=== PATIENT | female | born 1970 | race African-American/Black ===

== ENCOUNTER 2016-09-25 03:06 | Emergency (ER) | payer BC ==
[~2016-09-25] VITALS: Ht 160 cm; Wt 95.3 kg
[~2016-09-25 03:06] MED LIST: AMLO5TAB2 PO; HYDR-2762 PO; RANI150C PO; [UNRECOGNIZED DRUG - OTHER]
[2016-09-25 03:12] VITALS: BP 171/97
[2016-09-25] MEDS ORDERED: ASPIRIN 325 MG TABLET PO ONE (04:00)
[2016-09-25] MEDS ORDERED: LIDO:MAALOX:DONNATAL 1:1:1 15 ML SINGLE DOSE SWSW ONE (04:15)
[2016-09-25] MEDS ORDERED: FAMO20TA5 PO (04:16)
--- NOTE | 2016-09-25 04:16 | PHYS DOC ---
Past Medical History Past Medical History: GERD, Hypertension, Hyperthyroid Additional Past Medical Histor: seasonal allergies Past Surgical History: , Other Additional Past Surgical Histo: legs Alcohol Use: Rarely Drug Use: None Adult General Chief Complaint Chief Complaint: CHEST PAIN HPI HPI Patient is a 46 year old female who presents with left chest pain that is sharp and burning for the past few hours, constant, similar to prior evaluation when she had negative stress test last year. Started at rest, nonexertional. Pain is nonradiating. She has taken Tums without resolution of her symptoms. She denies palpitations, diaphoresis, lightheadedness, dyspnea, cough, leg pain or swelling, hemoptysis, orthopnea, fever or chills, nausea or vomiting, abdominal pain, back pain. Review of Systems Review of Systems Constitutional: Denies fever or chills [] Eyes: Denies change in visual acuity, redness, or eye pain [] HENT: Denies nasal congestion or sore throat [] Respiratory: Denies cough or shortness of breath [] Cardiovascular: No additional information not addressed in HPI [] GI: Denies abdominal pain, nausea, vomiting, bloody stools or diarrhea [] : Denies dysuria or hematuria [] Musculoskeletal: Denies back pain or joint pain [] Integument: Denies rash or skin lesions [] Neurologic: Denies headache, focal weakness or sensory changes [] Endocrine: Denies polyuria or polydipsia [] Current Medications Current Medications Current Medications Medications (Trade) Dose Ordered Sig/[facility] Start Time Stop Time Status Last Admin Dose Admin Aspirin (Trev Aspirin) 325 mg 1X ONCE 09/25/16 04:00 09/25/16 04:01 DC 09/25/16 04:00 325 MG Multi-Ingredient Mouthwash/Gargle (Gi Cocktail Single Dose) 15 ml 1X ONCE 09/25/16 04:15 09/25/16 04:21 DC 09/25/16 04:15 15 ML Allergies Allergies Allergies Coded Allergies Type Severity Reaction Last Updated Verified No Known Drug Allergies 11/07/14 No Physical Exam Physical Exam Constitutional: Well developed, well nourished, no acute distress, non-toxic appearance. [] HENT: Normocephalic, atraumatic, bilateral external ears normal, oropharynx moist, no oral exudates, nose normal. [] Eyes: PERRLA, EOMI. [] Neck: Normal range of motion, supple. [] Cardiovascular:Heart rate regular rhythm [] Lungs & Thorax: Bilateral breath sounds clear to auscultation. No palpable chest wall tenderness [] Abdomen: Bowel sounds normal, soft, no tenderness. [] Skin: Warm, dry, no erythema, no rash. [] Back: Normal range of motion. [] Extremities: No tenderness, ROM intact, no edema. [] Neurologic: Alert and oriented X 3, normal motor function, normal sensory function, no focal deficits noted. [] Psychologic: Affect normal, judgement normal, mood normal. [] Current Patient Data Vital Signs Vital Signs Date Time Temp Pulse Resp B/P (MAP) Pulse Ox O2 Delivery O2 Flow Rate FiO2 09/25/16 03:12 98.3 85 20 171/97 (121) 100 Room Air 98.3 Lab Values Laboratory Tests Test 09/25/16 02:37 09/25/16 03:57 POC Urine HCG, Qualitative Hcg negative (Negative) POC Troponin I 0.00 ng/ml (<0.08) EKG EKG EKG as interpreted by me as normal sinus rhythm, rate 92, no ST-T changes, normal intervals, no ectopy Radiology/Procedures Radiology/Procedures Chest xray as interpreted by me with no acute cardiopulmonary disease process Course & Med Decision Making Course & Med Decision Making Pertinent Labs and Imaging studies reviewed. (See chart for details) Workup is unremarkable. She is feeling better after medications and would like to go home. Return precautions given. She and understand and agree with plan. Dragon Disclaimer Dragon Disclaimer This electronic medical record was generated, in whole or in part, using a voice recognition dictation system. Departure Departure Impression: Primary Impression: Atypical chest pain Disposition: HOME, SELF-CARE Condition: STABLE Referrals: LISA COTTON (PCP) Patient Instructions: Chest Pain (Nonspecific), [id number] Additional Instructions: Take famotidine for possible acid reflux. Follow-up with primary care doctor within one week. Return for any concerns. Scripts Famotidine (FAMOTIDINE) 20 Mg Tablet 20 MG PO BID, #30 TAB Prov: Brandi KWONG MD 09/25/16 Brandi KWONG MD Sep 25, 2016 04:16
--- NOTE | 2016-09-25 07:13 | EKG ---
[facility] [address] [place] [address] Test Date: 2016-09-25 Test Time: 03:13:11 Pat Name: MARVEL CHAVIS Department: Room: Gender: F Film Or Videotape Editor: : 1970 Requested By: Brandi KWONG Order Number: [id number] Reading MD: Measurements Intervals [place] Rate: 92 P: 90 AK: 136 QRS: -19 QRSD: 88 T: 32 QT: 362 QTc: 453 Interpretive Statements SINUS RHYTHM LEFTWARD AXIS QRS(T) CONTOUR ABNORMALITY CONSISTENT WITH ANTEROSEPTAL INFARCT AGE UNDETERMINED RI6.01 Unconfirmed report No previous ECG available for comparison
--- NOTE | 2016-09-25 09:17 | RAD ---
PA AND LATERAL CHEST RADIOGRAPH Clinical Indication: chest pain since 1:45 AM. Comparison: AP chest 08/21/2015. Findings: The cardiomediastinal silhouette is normal. Pulmonary vasculature is normal. The lungs are clear. No pleural effusion or pneumothorax is seen. There is no acute bone abnormality. IMPRESSION: No acute cardiopulmonary process.
[2016-09-25 10:30] LABS: POTASSIUM ISTAT 3.9 mmol/L (3.5-5.0)
== END 2016-09-25 04:23 | disposition home or self-care (01) ==
LOC: ER 03:06
DX: R07.89 Other chest pain (principal); K21.9 Gastro-esophageal reflux disease without esophagitis; E05.90 Thyrotoxicosis, unspecified without thyrotoxic crisis or storm; I10 Essential (primary) hypertension; Z79.82 Long term (current) use of aspirin
CPT/HCPCS: 71020; 80047; 81025; 84484; 93005; 99284

== ENCOUNTER → 2017-08-31 | Outpatient (CLI) | payer OTHER | END | disposition home or self-care (01) | LOC: US 09:21 | DX: Z12.31 Encounter for screening mammogram for malignant neoplasm of breast (principal); M11.261 Other chondrocalcinosis, right knee; E04.2 Nontoxic multinodular goiter | CPT/HCPCS: 73562; 76536; 77063; 77067 ==

== ENCOUNTER → 2018-07-30 | Outpatient (CLI) | payer OTHER ==
[~2018-07-30] MED LIST changes: +AMLO5TAB10 PO; -AMLO5TAB2 PO; +CEPH500T PO; +FAMO20TA5 PO; -HYDR-2762 PO; +HYDR-2765 PO
[2018-07-30 12:15] LABS: BASO # 0.1 x10^3/uL (0.0-0.2); BASO % 1 % (0-3); EOS # 0.1 x10^3/uL (0.0-0.7); EOS % 1 % (0-3); HEMATOCRIT 43.6 % (36.0-47.0); HEMOGLOBIN 14.5 g/dL (12.0-15.5); LYMPH # 2.2 x10^3/uL (1.0-4.8); LYMPH % 40 % (24-48); MEAN CORPUSCULAR HEMOGLOBIN 29 pg (25-35); MEAN CORPUSCULAR HGB CONC 33 g/dL (31-37); MEAN CORPUSCULAR VOLUME 88 fL (79-100); MONO # 0.5 x10^3/uL (0.0-1.1); MONO % 10 % (0-9); NEUT # 2.7 x10^3uL (1.8-7.7); NEUT % 49 % (31-73); PLATELET COUNT 330 x10^3/uL (140-400); RED BLOOD COUNT 4.96 x10^6/uL (3.50-5.40); RED CELL DISTRIBUTION WIDTH 14.1 % (11.5-14.5); WHITE BLOOD COUNT 5.5 x10^3/uL (4.0-11.0)
[2018-07-30 12:24] LABS: PROTHROMBIN TIME PATIENT 12.3 SEC (11.7-14.0)
[2018-07-30 12:27] LABS: CALCIUM 9.5 mg/dL (8.5-10.1); CREATININE 1.2 mg/dL (0.6-1.0); POTASSIUM 4.4 mmol/L (3.5-5.1); TOTAL BILIRUBIN 0.6 mg/dL (0.2-1.0); TOTAL PROTEIN 8.1 g/dL (6.4-8.2)
[2018-07-30 12:29] LABS: CHOLESTEROL/HDL RATIO 4.9
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
[2018-07-31 00:13] LABS: HEMOGLOBIN A1C 5.3 % (4.8-5.6)
== END | disposition home or self-care (01) ==
LOC: RAD 11:45
PROVIDERS: ATTEND Surgery
DX: M47.817 Spondylosis without myelopathy or radiculopathy, lumbosacral region (principal); M48.07 Spinal stenosis, lumbosacral region; M12.88 Other specific arthropathies, not elsewhere classified, other specified site; E78.5 Hyperlipidemia, unspecified; E11.65 Type 2 diabetes mellitus with hyperglycemia; E05.90 Thyrotoxicosis, unspecified without thyrotoxic crisis or storm; Z97.5 Presence of (intrauterine) contraceptive device
CPT/HCPCS: 36415; 72100; 80053; 80061; 83036; 84436; 84443; 85025; 85610

== ENCOUNTER → 2018-08-07 | Outpatient (CLI) | payer OTHER ==
[~2018-08-07] MED LIST changes: -CEPH500T PO
--- NOTE | 2018-08-07 10:03 | RAD ---
DATE: 08/07/2018 EXAM: DIGITAL SCREEN BILAT W/CAD HISTORY: Routine screening COMPARISON: 08/31/2017 This study was interpreted with the benefit of Computerized Aided Detection (CAD). Breast Density: SCATTERED The breast parenchyma shows scattered fibroglandular densities. Breast parenchyma level B. FINDINGS: No new or enlarging breast densities are seen. No spiculated mass or architectural distortion is evident. No suspicious microcalcifications are seen. IMPRESSION: Stable mammograms without evidence of malignancy. BI-RADS CATEGORY: 2 BENIGN FINDING(S) RECOMMENDED FOLLOW-UP: 12M 12 MONTH FOLLOW-UP PQRS compliance statement: Patient information was entered into a reminder system with a target due date for the next mammogram. Mammography is a sensitive method for finding small breast cancers, but it does not detect them all and is not a substitute for careful clinical examination. A negative mammogram does not negate a clinically suspicious finding and should not result in delay in biopsying a clinically suspicious abnormality. "Our facility is accredited by the [employer] Mammography Program."
== END | disposition home or self-care (01) ==
LOC: MAMMO 08:39
PROVIDERS: ATTEND Family Medicine
DX: R92.2 Inconclusive mammogram (principal)
CPT/HCPCS: 77067

== ENCOUNTER 2018-09-12 21:36 | Emergency (ER) | payer OTHER ==
[~2018-09-12] VITALS: Ht 160 cm; Wt 95.3 kg
[2018-09-12 22:16] LABS: BILIRUBIN,URINE NEGATIVE (NEG); CLARITY,URINE CLEAR; COLOR,URINE YELLOW; NITRITE,URINE NEGATIVE (NEG); PROTEIN,URINE NEGATIVE (NEG-TRACE)
[2018-09-12 22:21] LABS: SQUAMOUS EPITHELIAL CELL,UR MANY /LPF
[2018-09-12 22:22] LABS: BACTERIA,URINE MANY /HPF (0-FEW); RBC,URINE 0 /HPF (0-2); TRICHOMONAS,URINE PRESENT
--- NOTE | 2018-09-12 22:39 | PHYS DOC ---
Past Medical History Past Medical History: Arthritis, GERD, Hypertension, Hyperthyroid Additional Past Medical Histor: seasonal allergies (HOSSEIN PITTS APRN) Past Surgical History: , Other Additional Past Surgical Histo: legs (HOSSEIN PITTS APRN) Alcohol Use: Rarely Drug Use: None (HOSSEIN PITTS APRN) Adult General Chief Complaint Chief Complaint: FLANK PAIN HPI HPI Patient is a 48 year old [Female] who presents with [intermittent right flank pain. States over the past 2 days, she has had a couple episodes of pain that is in her right flank, feels it go from her back to her front. States she has never had pain that bad in the past, States the pain only lasts a couple minutes then gets better. States no pain with urination, no urinary frequency, no vaginal discharge, no vaginal bleeding, LMP 2 weeks ago. Denies nausea or vomiting. Last bowel movement was day prior. Reports pain seemed to come on today when she tried to have a bowel movement, Reports she is passing gas, normally has bowel movement every day.] (HOSSEIN PITTS APRN) Review of Systems Review of Systems Constitutional: Denies fever or chills [] Respiratory: Denies cough or shortness of breath [] Cardiovascular: No additional information not addressed in HPI [] GI: Reports abdominal and right flank pain, denies nausea, vomiting, bloody stools or diarrhea [] : Denies dysuria or hematuria [] Musculoskeletal: Denies back pain or joint pain [] Integument: Denies rash or skin lesions [] All other systems were reviewed and found to be within normal limits, except as documented in this note. (HOSSEIN PITTS APRN) Current Medications Current Medications Current Medications Medications (Trade) Dose Ordered Sig/[place] Start Time Stop Time Status Last Admin Dose Admin Cephalexin HCl (Keflex) 500 mg 1X STAT 09/12/18 23:16 09/12/18 23:20 DC Metronidazole (Flagyl) 2,000 mg ONCE ONCE 09/12/18 23:30 09/12/18 23:31 DC 09/12/18 23:31 2,000 MG (FILIPE FLORIAN MD) Allergies Allergies Allergies Coded Allergies Type Severity Reaction Last Updated Verified lisinopril Allergy Severe Shortness of Air 09/12/18 Yes (FILIPE FLORIAN MD) Physical Exam Physical Exam Constitutional: Well developed, well nourished, no acute distress, non-toxic appearance. [] HENT: Normocephalic, atraumatic, bilateral external ears normal, oropharynx moist, no oral exudates, nose normal. [] Eyes: PERRLA, EOMI, conjunctiva normal, no discharge. [] Neck: Normal range of motion, no tenderness, supple, no stridor. [] Cardiovascular:Heart rate regular rhythm, no murmur [] Lungs & Thorax: Bilateral breath sounds clear to auscultation [] Abdomen: Bowel sounds normal, soft, no tenderness, no masses, no pulsatile masses. [] Skin: Warm, dry, no erythema, no rash. [] Back: No tenderness, no CVA tenderness. [] Extremities: No tenderness, no cyanosis, no clubbing, ROM intact, no edema. [] Neurologic: Alert and oriented X 3, normal motor function, normal sensory function, no focal deficits noted. [] Psychologic: Affect normal, judgement normal, mood normal. [] (HOSSEIN IPTTS APRN) Current Patient Data Vital Signs Vital Signs Date Time Temp Pulse Resp B/P (MAP) Pulse Ox O2 Delivery O2 Flow Rate FiO2 09/12/18 23:33 77 16 122/76 (91) 97 Room Air 09/12/18 21:47 98.2 98.2 (FILIPE FLORIAN MD) Lab Values Laboratory Tests Test 09/12/18 21:30 09/12/18 21:50 Urine Collection Type Unknown Urine Color Yellow Urine Clarity Clear Urine pH 7.0 Urine Specific [place] 1.015 Urine Protein Negative mg/dL (NEG-TRACE) Urine Glucose (UA) Negative mg/dL (NEG) Urine Ketones (Stick) Negative mg/dL (NEG) Urine Blood Negative (NEG) Urine Nitrite Negative (NEG) Urine Bilirubin Negative (NEG) Urine Urobilinogen Dipstick 1.0 mg/dL (0.2 mg/dL) Urine Leukocyte Esterase Small (NEG) Urine RBC 0 /HPF (0-2) Urine WBC 5-10 /HPF (0-4) Urine Squamous Epithelial Cells Many /LPF Urine Bacteria Many /HPF (0-FEW) Urine Trichomonas Present POC Urine HCG, Qualitative Hcg negative (Negative) Microbiology 09/12/18 Urine Culture - Final, Complete 09/12/18 Urine Culture Result 1 (BEV) - Final, Complete (FILIPE FLORIAN MD) EKG EKG [] (HOSSEIN PITTS APRN) Radiology/Procedures Radiology/Procedures Impression: No acute intra-abdominal or pelvic process detected. No evidence of urolithiasis. Suggested right ovarian cyst, likely physiological. [] (HOSSEIN PITTS APRN) Course & Med Decision Making Course & Med Decision Making Pertinent Labs and Imaging studies reviewed. (See chart for details) [Discussed findings with patient. Discussed treatment plan. Discussed follow up. Patient in agreement with plan of care with no further questions] (HOSSEIN PITTS APRN) Course & Med Decision Making Staff Physician Addendum: I was working in the ER during the course of this patient's visit. I was available for consultation as needed, but I was not directly involved in the care of this patient. (FILIPE FLORIAN MD) Dragon Disclaimer Dragon Disclaimer This electronic medical record was generated, in whole or in part, using a voice recognition dictation system. (HOSSEIN PITTS APRN) Departure Departure Impression: Primary Impression: Urinary tract infection Additional Impression: Trichomoniasis Disposition: 01 HOME, SELF-CARE Condition: GOOD Referrals: BAUTISTA TEJEDA MD (PCP) Patient Instructions: Trichomoniasis-Brief, Urinary Tract Infection Additional Instructions: As we discussed, increase your fluids Take the antibiotics Your partner should be tested and treated before you are sexually active again Follow up with your primary care provider Scripts Cephalexin (CEPHALEXIN) 500 Mg Tablet 1 TAB PO BID, #20 TAB Prov: HOSSEIN PITTS APRN 09/12/18 Problem Qualifiers Primary Impression: Urinary tract infection Urinary tract infection type: acute cystitis Hematuria presence: without hematuria Qualified Codes: N30.00 - Acute cystitis without hematuria HOSSEIN PITTS APRN Sep 12, 2018 22:39 FILIPE FLORIAN MD Sep 18, 2018 20:30
--- NOTE | 2018-09-12 23:14 | RAD ---
Exam performed: CT scan of the abdomen and pelvis without contrast. Clinical Indication: Right flank pain. Date of Service: 09/12/2018 no priors Technique: Contiguous helical acquisitions are obtained through the abdomen and pelvis without IV contrast. Sagittal and coronal reformatted images are obtained and reviewed. CT abdomen and pelvis findings: Minimal bibasilar atelectasis. Visualized heart is normal. Lack of IV contrast limits evaluation of abdominal viscera, however the liver, gallbladder, spleen and pancreas are normal. Both adrenal glands and bilateral kidneys are normal in size without hydronephrosis or nephrolithiasis. Aorta is normal in caliber with mild atheromatous calcification without aneurysm. The small and large bowel loops are nondilated and unremarkable. The visualized portion of the appendix is unremarkable Distal ureters are nondilated. Urinary bladder is decompressed and thick walled. [Uterus is normal without being placed. There is a suggestion right ovarian cyst.] No free or focal fluid collections are identified. Impression: No acute intra-abdominal or pelvic process detected. No evidence of urolithiasis. Suggested right ovarian cyst, likely physiological. PQRS Compliance Statement: One or more of the following individualized dose reduction techniques were utilized for this examination: 1. Automated exposure control 2. Adjustment of the mA and/or kV according to patient size 3. Use of iterative reconstruction technique Electronically signed by: Lanie Waters MD (09/12/2018 11:11 PM) [facility]
[2018-09-12] MEDS ORDERED: CEPHALEXIN 250 MG CAPSULE. PO STA (23:16)
[2018-09-12] MEDS ORDERED: CEPH500T PO (23:22)
[2018-09-12] MEDS ORDERED: metroNIDAZOLE 500 MG TABLET PO ONE (23:30)
[2018-09-12 23:33] VITALS: BP 122/76
== END 2018-09-12 23:37 | disposition home or self-care (01) ==
LOC: ER 21:36
DX: N30.00 Acute cystitis without hematuria (principal); A59.9 Trichomoniasis, unspecified; K21.9 Gastro-esophageal reflux disease without esophagitis; I10 Essential (primary) hypertension; M19.90 Unspecified osteoarthritis, unspecified site; E05.90 Thyrotoxicosis, unspecified without thyrotoxic crisis or storm; Z88.8 Allergy status to other drugs, medicaments and biological substances
CPT/HCPCS: 74176; 81001; 81025; 87086; 99285-25

== ENCOUNTER → 2018-10-24 | Outpatient (CLI) | payer OTHER ==
[~2018-10-24] MED LIST changes: +CEPH500T PO
--- NOTE | 2018-10-24 17:22 | RAD ---
INDICATION: Pelvic pain. COMPARISON: None available. TECHNIQUE: Transabdominal sonography was performed FINDINGS: The uterus measures 12.8 x 4.1 x 5.3 cm. The endometrium measures 1 cm on transabdominal images although this measurement takes into account the IUD which grossly appears in satisfactory position. There is no focal myometrial abnormality The right ovary measures 3.9 x 2.1 x 2.1 cm. The left ovary measures 3.4 x 2.4 x 1.9 cm. A 1.9 cm right ovarian cystic structure is favored to represent a follicle. No adnexal mass is seen. Flow seen to both ovaries. There is no free fluid. IMPRESSION: IUD appears within the uterus. Right ovarian follicle is seen. No evidence for ovarian torsion. Electronically signed by: Omar Vyas MD (10/24/2018 5:19 PM) [facility]
== END | disposition home or self-care (01) ==
LOC: US 07:09
PROVIDERS: ATTEND Obstetrics & Gynecology
DX: T83.89XA Other specified complication of genitourinary prosthetic devices, implants and grafts, initial encounter (principal); N83.9 Noninflammatory disorder of ovary, fallopian tube and broad ligament, unspecified; Y76.8 Miscellaneous obstetric and gynecological devices associated with adverse incidents, not elsewhere classified; Y92.89 Other specified places as the place of occurrence of the external cause
CPT/HCPCS: 76856

== ENCOUNTER → 2018-12-04 | Outpatient (CLI) | payer OTHER ==
--- NOTE | 2018-12-04 15:01 | RAD ---
Examination: Ultrasound pelvis HISTORY: History of right ovarian cyst COMPARISON: 10/24/2018. FINDINGS: The uterus measures 10.7 x 5.8 x 4.7 cm. Linear echogenicity identified in the uterus likely intrauterine contraceptive device in place. The right ovary measures 2.9 x 1.4 x 1.8 cm. The left ovary measures 3.1 x 1.7 x 2.1 cm. Blood flow identified in the right and left ovaries. The previously visualized right ovarian cyst or follicle is not evident on this exam. IMPRESSION: 1. The previously visualized right ovarian cyst or follicle is not evident on this exam. Electronically signed by: Yo Peace MD (12/04/2018 2:58 PM) [id number]
== END | disposition home or self-care (01) ==
LOC: US 12:02
PROVIDERS: ATTEND Obstetrics & Gynecology
DX: N83.201 Unspecified ovarian cyst, right side (principal)
CPT/HCPCS: 76856

== ENCOUNTER → 2019-02-25 | Outpatient (CLI) | payer OTHER ==
[2019-02-25 12:22] LABS: BASO # 0.1 x10^3/uL (0.0-0.2); BASO % 2 % (0-3); EOS # 0.1 x10^3/uL (0.0-0.7); EOS % 1 % (0-3); HEMOGLOBIN 13.5 g/dL (12.0-15.5); LYMPH # 2.3 x10^3/uL (1.0-4.8); LYMPH % 43 % (24-48); MEAN CORPUSCULAR HEMOGLOBIN 30 pg (25-35); MEAN CORPUSCULAR HGB CONC 35 g/dL (31-37); MEAN CORPUSCULAR VOLUME 88 fL (79-100); MONO # 0.4 x10^3/uL (0.0-1.1); MONO % 8 % (0-9); NEUT # 2.5 x10^3/uL (1.8-7.7); NEUT % 46 % (31-73); PLATELET COUNT 291 x10^3/uL (140-400); RED BLOOD COUNT 4.46 x10^6/uL (3.50-5.40); RED CELL DISTRIBUTION WIDTH 13.7 % (11.5-14.5); WHITE BLOOD COUNT 5.4 x10^3/uL (4.0-11.0)
[2019-02-25 12:41] LABS: ALBUMIN 3.6 g/dL (3.4-5.0); ALBUMIN/GLOBULIN RATIO 0.8 (1.0-1.7); CALCIUM 9.1 mg/dL (8.5-10.1); CREATININE 1.1 mg/dL (0.6-1.0); DIRECT BILIRUBIN 0.2 mg/dL (0.0-0.2); GFR 63.9; TOTAL BILIRUBIN 0.6 mg/dL (0.2-1.0); TOTAL PROTEIN 8.4 g/dL (6.4-8.2)
[2019-02-25 12:47] LABS: CHOLESTEROL/HDL RATIO 4.9
[2019-02-26 00:07] LABS: HEMOGLOBIN A1C 5.2 % (4.8-5.6)
== END | disposition home or self-care (01) ==
LOC: LAB 11:47
PROVIDERS: ATTEND Surgery
DX: Z00.00 Encounter for general adult medical examination without abnormal findings (principal)
CPT/HCPCS: 36415; 80053; 80061; 80076; 83036; 84436; 84443; 84480; 85025

== ENCOUNTER → 2019-02-26 | Outpatient (CLI) | payer OTHER ==
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
--- NOTE | 2019-02-26 17:49 | RAD ---
Study: 1. CR CERVICAL SPINE 5V 2. CR LUMBAR SPINE 2-3V Indication: Pain. Possible fracture. No known injury. Comparison: Lumbar spine radiographs 07/30/2018 Findings: Cervical spine: Straightening of cervical lordosis. Note is made that the C7 vertebral body and cervicothoracic junction are partially obscured on the lateral view by overlapping structures. Discogenic arthrosis at C4-C5 and C5-C6 without significant disc space narrowing. Multilevel facet degeneration and uncovertebral joint hypertrophy. Uncovertebral joint hypertrophy appears most pronounced on the right at C5-C6 as well as on the right at C3-C4 and on the left at C4-C5. The odontoid process and C1-C2 interface is not well evaluated on the open-mouth odontoid views due to overlapping structures. On the oblique views, bony neural foraminal encroachment most pronounced on the left at C4-C5 and on the right at C3-C4 and C5-C6. Normal thickness of the prevertebral soft tissues. No abnormality seen at the lung apices. Lumbar spine: 5 nonrib-bearing lumbar vertebral elements. Lumbar lordosis is maintained, as is vertebral body height. Disc space narrowing with vacuum phenomenon at L5-S1 is redemonstrated as is mild disc space height loss at L4-L5. Facet degeneration most pronounced at L5-S1 more so than L4-L5. Retained radiodensities again noted to project along the right aspect of the S2 vertebral body. Tubal ligation clips and intrauterine contraceptive device. 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 The levels with the greatest degree of uncovertebral joint hypertrophy also exhibit associated neural foraminal encroachment. Lumbar spine: Degenerative changes at L5-S1 more so than L4-L5 which are not significant a different from the 07/30/2018 comparison. Electronically signed by: ALVARO LAZO MD (02/26/2019 5:46 PM) [facility]
== END | disposition home or self-care (01) ==
LOC: RAD 12:07
PROVIDERS: ATTEND Surgery
DX: M47.816 Spondylosis without myelopathy or radiculopathy, lumbar region (principal); M47.812 Spondylosis without myelopathy or radiculopathy, cervical region; M89.39 Hypertrophy of bone, multiple sites; R51 Headache; Z98.51 Tubal ligation status; Z97.5 Presence of (intrauterine) contraceptive device; X58.XXXA Exposure to other specified factors, initial encounter; Y93.89 Activity, other specified; Y92.89 Other specified places as the place of occurrence of the external cause; Y99.8 Other external cause status
CPT/HCPCS: 70450; 72050; 72100; 72125

== ENCOUNTER → 2019-08-12 | Outpatient (CLI) | payer OTHER ==
--- NOTE | 2019-08-13 15:09 | RAD ---
EXAM: BILATERAL DIGITAL SCREENING MAMMOGRAPHY. HISTORY: Routine mammographic screening. TECHNIQUE: Bilateral full field digital images were obtained in CC and MLO projections. Computer-aided detection was applied. COMPARISON: 08/07/2018, 08/31/2017, 05/27/2016. COMPOSITION: B. There are scattered areas of fibroglandular density. FINDINGS: There are no suspicious masses, microcalcifications or architectural distortion. The parenchymal pattern is stable. A few scattered calcifications are benign. BI-RADS CATEGORY 2: Benign. RECOMMENDATION: 1. Routine screening mammography in one year. If mammography demonstrates dense breast tissue (heterogenously dense or extremely dense, category C or D), which could hide abnormalities, and if other risk factors for breast cancer have been identified, supplemental screening tests that may be suggested by the ordering physician may be of benefit. Dense breast tissue, in and of itself, is a relatively common condition. Therefore, this information is not provided to cause undue concern, but rather to raise awareness and to promote discussion with the referring physician regarding the presence of other risk factors, in addition to dense breast tissue. The results of this mammography examination is provided to the patient and referring physician. The patient should contact their referring physician if any questions or concerns exist regarding this report. PQRS compliance statement - Patient information was entered into a reminder system with a target due date for the next mammogram. "Our facility is accredited by the [employer] Mammography Program." Electronically signed by: Sammi Zhong MD (08/13/2019 3:06 PM) [email or web address]
== END | disposition home or self-care (01) ==
LOC: MAMMO 09:59
PROVIDERS: ATTEND Registered Nurse
DX: Z12.31 Encounter for screening mammogram for malignant neoplasm of breast (principal); N64.89 Other specified disorders of breast
CPT/HCPCS: 77067

== ENCOUNTER → 2019-08-28 | Outpatient (CLI) | payer OTHER ==
--- NOTE | 2019-08-28 11:39 | RAD ---
Examination: PELVIS COMPLETE History: Cystitis, fibroid, cystocele, without uterine prolapse Comparison/Correlation: 12/04/2018 pelvic ultrasound exam Findings: Transabdominal pelvic ultrasound was performed. Uterus measures 14 cm x 6.7 cm x 5 cm. Intrauterine device is present measuring up to 0.81 cm. Myometrium is unremarkable. Right ovary measures 2.8 cm x 2.6 cm x 1.8 cm the left ovary measures 2.7 cm x 1.6 cm x 1.9 cm. Normal ovarian flow bilaterally seen on Doppler imaging. No adnexal masses or cysts identified. No pelvic free fluid. The partially imaged urinary bladder is unremarkable. Impression: Intrauterine device is in place. No suspicious findings. Electronically signed by: Kj Damon MD (08/28/2019 11:36 AM) [id number]
== END | disposition home or self-care (01) ==
LOC: US 10:22
PROVIDERS: ATTEND Obstetrics & Gynecology
DX: D21.9 Benign neoplasm of connective and other soft tissue, unspecified (principal); N30.00 Acute cystitis without hematuria; N81.10 Cystocele, unspecified
CPT/HCPCS: 76856

== ENCOUNTER → 2020-12-15 | Outpatient (CLI) | payer OTHER ==
[~2020-12-15] MED LIST changes: +AMLO-186 PO; -AMLO5TAB10 PO
--- NOTE | 2020-12-15 14:05 | RAD ---
EXAM: Bilateral screening mammogram. HISTORY: 50-year-old female presents for screening mammography. TECHNIQUE: Full-field digital craniocaudal and mediolateral oblique views of both breasts are obtaine d for evaluation. Computer aided detection was applied. COMPARISON: 08/12/2019 and 08/31/2017 BREAST PARENCHYMAL DENSITY: Level B - Scattered fibroglandular densities. FINDINGS: There is no new suspicious mass, microcalcification or region of architectural distortion. There is stable nodularity within the posterior upper outer quadrant of the left breast when allowing for differences in imaging technique. This is likely due to an axillary tail lymph node or lymph nod es. The 3 year course of stability favors benignity. There are stable areas of asymmetry within both breasts, allowing for differences in patient positioning. IMPRESSION: BI-RADS Category 2: Benign finding(s). RECOMMENDATION: Annual mammography is recommended. If your mammogram demonstrates that you have dense breast tissue, which could hide abnormalities, and if you have other risk factors for breast cancer that have been identified, you might benefit from s upplemental screening tests that may be suggested by your ordering physician. Dense breast tissue, i n and of itself, is a relatively common condition. This information is not provided to cause undue c oncern, but rather to raise your awareness and to promote discussion with your physician regarding th e presence of other risk factors, in addition to dense breast tissue. A report of your mammography re sults will be sent to you and your physician. You should contact your physician if you have any ques tions or concerns regarding this report. Mammography is a sensitive method for finding small breast cancers, but it does not detect them all a nd is not a substitute for careful clinical examination. A negative mammogram does not negate a clin ically suspicious finding and should not result in delay in biopsying a clinically suspicious abnorma lity. PQRS compliance statement - Patient information was entered into a reminder system with a target due date for the next mammogram. "Our facility is accredited by the [employer] Mammography [employer]." Electronically signed by: Tammy Bailon MD (12/15/2020 2:03 PM) [id number]
== END ==
LOC: MAMMO 12:52
PROVIDERS: ATTEND Nurse Practitioner Family
DX: Z12.31 Encounter for screening mammogram for malignant neoplasm of breast (principal)
CPT/HCPCS: 77067

== ENCOUNTER → 2021-01-04 | Outpatient (CLI) | payer OTHER ==
[2021-01-04 12:26] LABS: CREATININE,RANDOM URINE 56.3 mg/dL (Not Establ.)
[2021-01-04 12:35] LABS: ALBUMIN 3.9 g/dL (3.4-5.0); CALCIUM 9.4 mg/dL (8.5-10.1); CREATININE 1.1 mg/dL (0.6-1.0); GFR 63.4; MAGNESIUM 1.9 mg/dL (1.8-2.4)
[2021-01-05 18:09] LABS: CREAT RD UR 57.4 mg/dL (Not Estab.); MICRO CREAT RATIO <5 mg/g creat (0-29); MICROALB RD UR <3.0 ug/mL (Not Estab.)
== END ==
LOC: LAB 11:47
PROVIDERS: ATTEND Internal Medicine Nephrology
DX: I12.9 Hypertensive chronic kidney disease with stage 1 through stage 4 chronic kidney disease, or unspecified chronic kidney disease (principal); N18.2 Chronic kidney disease, stage 2 (mild); N17.9 Acute kidney failure, unspecified; N39.0 Urinary tract infection, site not specified; Z68.38 Body mass index [BMI] 38.0-38.9, adult
CPT/HCPCS: 80069; 82043; 82570; 83735; 84156; 84550

== ENCOUNTER 2021-08-22 08:30 | Emergency (ER) | payer OTHER ==
[~2021-08-22] VITALS: Ht 160 cm; Wt 103.8 kg
[2021-08-22] MEDS ORDERED: CYCLOBENZAPRINE 10 MG TABLET. PO ONE (09:30)
[2021-08-22] MEDS ORDERED: HYDROcodone/APAP 5/325MG 1 TAB TABLET PO ONE (09:30)
--- NOTE | 2021-08-22 09:36 | PHYS DOC ---
Past Medical History Past Medical History: Arthritis, GERD, Hypertension, Hyperthyroid Additional Past Medical Histor: seasonal allergies Past Surgical History: , Other Additional Past Surgical Histo: legs Smoking Status: Current Every Day Smoker Alcohol Use: Rarely Drug Use: None General Adult EDM: Chief Complaint: UPPER EXTREMITY PAIN HPI: HPI: Patient is a 50-year-old female who presents today with left arm pain. Patient states that approximately 3 days ago she experienced a "crook" "in her neck and she said that that has gotten better but her left arm pain has increased with a shooting type pain in her left arm radiating down to her wrist. Patient states she does have some strength issues she said when she picks up stuff she does not feel like she has a lot of strength in her left hand compared to her right hand. Patient denies any trauma. Review of Systems: Review of Systems: Constitutional: Denies fever or chills. [] Eyes: Denies change in visual acuity. [] HENT: Denies nasal congestion or sore throat. [] Respiratory: Denies cough or shortness of breath. [] Cardiovascular: Denies chest pain or edema. [] GI: Denies abdominal pain, nausea, vomiting, bloody stools or diarrhea. [] : Denies dysuria. [] Musculoskeletal: Left neck and arm pain Integument: Denies rash. [] Neurologic: Denies headache, focal weakness or sensory changes. [] Endocrine: Denies polyuria or polydipsia. [] Lymphatic: Denies swollen glands. [] Psychiatric: Denies depression or anxiety. [] Heart Score: C/O Chest Pain: No Risk Factors: Risk Factors: DM, Current or recent (<one month) smoker, HTN, HLP, family history of CAD, obesity. Risk Scores: Score 0 - 3: 2.5% MACE over next 6 weeks - Discharge Home Score 4 - 6: 20.3% MACE over next 6 weeks - Admit for Clinical Observation Score 7 - 10: 72.7% MACE over next 6 weeks - Early Invasive Strategies Allergies: Allergies: Allergies Coded Allergies Type Severity Reaction Last Updated Verified lisinopril Allergy Severe Shortness of Air 09/12/18 Yes Physical Exam: PE: Constitutional: Well developed, well nourished, no acute distress, non-toxic appearance. [] HENT: Normocephalic, atraumatic, bilateral external ears normal, oropharynx moist, no oral exudates, nose normal. [] Eyes: PERRLA, EOMI, conjunctiva normal, no discharge. [] Neck: Normal range of motion, tenderness located on the left side of her neck, no step-off or crepitus noted Cardiovascular:Heart rate regular rhythm, no murmur [] Lungs & Thorax: Bilateral breath sounds clear to auscultation [] Abdomen: Bowel sounds normal, soft, no tenderness, no masses, no pulsatile masses. [] Skin: Warm, dry, no erythema, no rash. [] Back: No tenderness, no CVA tenderness. [] Extremities: Left arm neurovascular intact distal to the neck, 2+ radial pulse, strength is equal bilaterally Neurologic: Alert and oriented X 3, normal motor function, normal sensory function, no focal deficits noted. [] Psychologic: Affect normal, judgement normal, mood normal. [] Current Patient Data: Vital Signs: Vital Signs Date Time Temp Pulse Resp B/P (MAP) Pulse Ox O2 Delivery O2 Flow Rate FiO2 08/22/21 11:40 85 20 179/81 (113) 99 Room Air 08/22/21 11:10 92 20 174/84 (114) 99 Room Air 08/22/21 10:40 75 20 161/99 (119) 99 Room Air 08/22/21 10:10 78 20 152/70 (97) 99 Room Air 08/22/21 09:51 16 99 08/22/21 09:40 86 20 155/88 (110) 99 Room Air 08/22/21 08:59 98.2 94 18 178/98 (124) 99 Room Air 98.2 Vital Signs Date Time Temp Pulse Resp B/P (MAP) Pulse Ox O2 Delivery O2 Flow Rate FiO2 08/22/21 08:59 98.2 94 18 178/98 (124) 99 Room Air 98.2 EKG: EKG: EKG done at [address] Keita at 919 shows sinus rhythm at a rate of 90 with a DE interval of 140 ms with a QTC of 467 ms no STEMI Radiology/Procedures: Radiology/Procedures: REASON: neck pain with radiculapathy left arm pain PROCEDURE: CT CERVICAL SPINE WO CONTRAST INDICATION: Reason: neck pain with radiculapathy left arm pain / Spl. Instructions: / History: . COMPARISON: February 2019 TECHNIQUE: Axial CT images obtained through the cervical spine. One or more of the following individualized dose reduction techniques were utilized for this examination: 1. Automated exposure control; 2. Adjustment of the mA and/or kV according to patient size; 3. Use of iterative reconstruction technique. FINDINGS: Very mild grade 1 anterolisthesis of C3 on 4. No evidence of dislocation. No acute fracture is seen. Suspected thyroid nodule. Degenerative changes are seen throughout the cervical spine with disc protrusions and osteophyte formation at the vertebral body endplates with u ncovertebral and facet hypertrophy. C2-3 Central disc protrusion and osteophyte formation with facet and uncovertebral hypertrophy with mild central canal stenosis. C3-4 disc osteophyte complex more severe on the right. Mass effect on the anterior aspect of the thecal sac on the right. Facet and uncovertebral hypertrophy. Mild to moderate right neural foraminal stenosis. C4-5 there is osteophyte formation of the vertebral body endplates most severe on the right with moderate left neural foraminal stenosis and mild central canal stenosis. C5-6 disc osteophyte complex with mild central canal stenosis. Facet and uncovertebral hypertrophy. Moderate right neural foraminal stenosis. Posterior disc protrusion. C6-7 disc osteophyte complex with mild mass effect on anterior aspect of the thecal sac. Neural foramina appear patent. There is also some degenerative changes at the partially visualized upper thoracic spine. IMPRESSION: * No acute fracture or dislocation. * Degenerative changes of the cervical spine. * Suspected thyroid nodule. * Soft tissue thickening is seen at the prevertebral region including at C3 where it measures up to about 18 mm. This appears increased from prior when it was approximately 13 mm. There is also thickening of the aryepiglottic folds. There is some fullness of the soft tissues of the neck partially seen. It may be helpful to obtain a follow-up CT or MRI of the neck with contrast further evaluate and to assess for a mass in the area. Would also correlate with infectious symptoms since another possible cause would include tonsillitis. There is some mass effect on the airway at this level secondary to these findings. Electronically signed by: Leon Rosas MD (08/22/2021 10:11 AM) DESKTOP- [id number] [] Course & Med Decision Making: Course & Med Decision Making Pertinent Labs and Imaging studies reviewed. (See chart for details) 1035 I reviewed radiological findings with Dr. Keita and he recommended that I reviewed the films with neurosurgical services. Dr. Jimenez is not on-call this weekend so I clouded the images to the [facility] call the transfer team and asked for them to review the films and to give me some feedback on the plan of care for this patient. Awaiting their recommendations. 1155 the [facility] transfer team called me back Dr. Kennedy the neurosurgeon director of alumni relations made recommendations for the patient to obtain an outpatient MRI without contrast of the cervical spine and to see him in the office for further evaluation and management of the cervical condition and the left arm pain. I talked with the patient and family member at the bedside and they are agreeable to planning to have an outpatient MRI and to see the [facility] in the neurosurgery clinic for further evaluation and management. I did fax the referral form that was provided on the [facility]'s website to the number on the form, I have written for an outpatient MRI to be done as soon as possible, patient is to call the scheduling desk here at [facility] to get that scheduled soon as possible and then the [facility] will call her back for an appointment to see Dr. Kennedy. Patient will also be provided Flexeril, Motrin, and hydrocodone as needed for pain, patient is to return here to the emergency department should she have increased weakness in her left arm, numbness and tingling that is worsening in any way or having any direct neck pain. Case Disclaimer: Case Disclaimer: This electronic medical record was generated, in whole or in part, using a voice recognition dictation system. Departure Departure Impression: Primary Impression: Cervical radiculopathy Disposition: HOME / SELF CARE / HOMELESS Condition: STABLE Referrals: RYANN KUMAR APRN (PCP) Patient Instructions: Cervical Radiculopathy Additional Instructions: Motrin 600 mg take 1 tablet every 6 hours as needed for mild to moderate pain, take with food may cause stomach upset if taken on an empty stomach Flexeril 10 mg take 1 tablet every 8 hours as needed for muscle spasms, use with caution may cause drowsiness Hydrocodone take 1 tablet every 6 hours as needed for moderate to severe pain, use with caution may cause drowsiness and constipation Call [phone] to schedule an outpatient MRI as soon as possible Call the [facility] [phone] to schedule an appointment with Dr. Kennedy for further evaluation and management of your cervical spine issues. Return to the emergency department should you have increased pain in your arm or neck, any difficulty breathing, any numbness or tingling in your left arm that has worsened in any way or any incontinence of urine or bowel. Scripts Hydrocodone Bit/Acetaminophen (HYDROCODONE-APAP 5-325 ) 1 Tab Tablet 1 TAB PO PRN Q6HRS PRN for PAIN for 7 Days, #28 TAB 0 Refills Prov: LISA MARADIAGA W[employer] RESOURCE MANAGER 08/22/21 Ibuprofen (IBUPROFEN) 600 Mg Tablet 600 MG PO PRN Q6HRS PRN for INFLAMMATION, #30 TAB Prov: LISA MARADIAGA W[employer] RESOURCE MANAGER 08/22/21 Cyclobenzaprine Hcl (CYCLOBENZAPRINE HCL) 10 Mg Tablet 10 MG PO TID PRN PRN for MUSCLE SPASMS, #20 TAB Prov: LISA MARADIAGA WATER RESOURCE MANAGER 08/22/21 LISA MARADIAGA WATER RESOURCE MANAGER August 22, 2021 09:36
--- NOTE | 2021-08-22 10:13 | RAD ---
INDICATION: Reason: neck pain with radiculapathy left arm pain / Spl. Instructions: / History: . COMPARISON: February 2019 TECHNIQUE: Axial CT images obtained through the cervical spine. One or more of the following individualized dose reduction techniques were utilized for this examinat ion: 1. Automated exposure control; 2. Adjustment of the mA and/or kV according to patient size; 3 . Use of iterative reconstruction technique. FINDINGS: Very mild grade 1 anterolisthesis of C3 on 4. No evidence of dislocation. No acute fracture is seen. Suspected thyroid nodule. Degenerative changes are seen throughout the cervical spine with disc protrusions and osteophyte form ation at the vertebral body endplates with uncovertebral and facet hypertrophy. C2-3 Central disc protrusion and osteophyte formation with facet and uncovertebral hypertrophy with m ild central canal stenosis. C3-4 disc osteophyte complex more severe on the right. Mass effect on the anterior aspect of the thec al sac on the right. Facet and uncovertebral hypertrophy. Mild to moderate right neural foraminal ramya nosis. C4-5 there is osteophyte formation of the vertebral body endplates most severe on the right with mode rate left neural foraminal stenosis and mild central canal stenosis. C5-6 disc osteophyte complex with mild central canal stenosis. Facet and uncovertebral hypertrophy. M oderate right neural foraminal stenosis. Posterior disc protrusion. C6-7 disc osteophyte complex with mild mass effect on anterior aspect of the thecal sac. Neural deann dara appear patent. There is also some degenerative changes at the partially visualized upper thoracic spine. IMPRESSION: * No acute fracture or dislocation. * Degenerative changes of the cervical spine. * Suspected thyroid nodule. * Soft tissue thickening is seen at the prevertebral region including at C3 where it measures up to about 18 mm. This appears increased from prior when it was approximately 13 mm. There is also thicken ing of the aryepiglottic folds. There is some fullness of the soft tissues of the neck partially seen . It may be helpful to obtain a follow-up CT or MRI of the neck with contrast further evaluate and to assess for a mass in the area. Would also correlate with infectious symptoms since another possible cause would include tonsillitis. There is some mass effect on the airway at this level secondary to t hese findings. Electronically signed by: Leon Rosas MD (08/22/2021 10:11 AM) [id number]
[2021-08-22 11:40] VITALS: BP 179/81
[2021-08-22] MEDS ORDERED: CYCL10TA19 PO (12:11)
[2021-08-22] MEDS ORDERED: IBUP-1007 PO (12:11)
[2021-08-22] MEDS ORDERED: HYDR-2761 PO (12:11)
--- NOTE | 2021-08-26 08:02 | EKG ---
[facility] [address] [place] [address] Test Date: 2021-08-22 Test Time: 09:14:35 Pat Name: MARVEL CHAVIS Department: Room: Gender: F Associate [employer]: : 1970 Requested By: LISA MARADIAGA Order Number: [id number] Reading MD: Measurements Intervals [place] Rate: 90 P: 90 FL: 142 QRS: -35 QRSD: 96 T: 29 QT: 378 QTc: 467 Interpretive Statements SINUS RHYTHM ABNORMAL LEFT AXIS DEVIATION LEFT ANTERIOR FASCICULAR BLOCK QRS(T) CONTOUR ABNORMALITY CONSIDER ANTEROSEPTAL MYOCARDIAL DAMAGE ABNORMAL ECG RI6.01 No previous ECG available for comparison
== END 2021-08-22 12:15 | disposition home or self-care (01) ==
LOC: ER 08:30
DX: M54.12 Radiculopathy, cervical region (principal); K21.9 Gastro-esophageal reflux disease without esophagitis; I10 Essential (primary) hypertension; F17.200 Nicotine dependence, unspecified, uncomplicated; Z88.6 Allergy status to analgesic agent
CPT/HCPCS: 72125; 93005; 99284-25; 99285-25